=== PATIENT | male | born 1995 | race Caucasian/White ===

== ENCOUNTER 2017-06-20 13:46 | Emergency (ER) | payer OTHER ==
[~2017-06-20] VITALS: Ht 175.3 cm; Wt 88.5 kg
[2017-06-20 14:19] VITALS: BP 134/84
--- NOTE | 2017-06-20 17:15 | NUR ---
CALLED IN AT THE [facility], NO RESPONSE, LEFT WITHOUT BEING SEEN
== END 2017-06-20 17:15 | disposition left against medical advice (07) ==
LOC: MED 14:02
DX: M54.5 Low back pain (principal); Z53.21 Procedure and treatment not carried out due to patient leaving prior to being seen by health care provider